=== PATIENT | female | born 2000 | race Two or more races ===

== ENCOUNTER 2022-06-27 14:14 | Emergency (ER) | payer MEDICAID, OTHER ==
[~2022-06-27] VITALS: Ht 157.5 cm; Wt 110.0 kg
[2022-06-27 15:22] VITALS: BP 145/50
== END 2022-06-27 15:41 | disposition home or self-care (01) ==
LOC: ER 14:14
DX: Z48.01 Encounter for change or removal of surgical wound dressing (principal); L02.212 Cutaneous abscess of back [any part, except buttock and flank]